=== PATIENT | male | born 1980 | race Caucasian/White ===

== ENCOUNTER 2024-08-09 11:36 | Emergency (ER) | payer OTHER, SELFPAY ==
--- NOTE | ~2024-08-09 | CT_ITS ---
EXAMINATION: CT abdomen pelvis wo con DATE: 08/09/2024 12:48 INDICATION: Flank pain. TECHNIQUE: Computed tomography (CT) of the abdomen and pelvis was performed without intravenous contr ast. The dose-length product was 206.24 mGy-cm. Automated exposure control and iterative reconstructi on technique were employed. COMPARISON: CT dated 10/26/2009. FINDINGS: Heart size normal. No significant pleural or pericardial effusion. There are cholecystectom y clips. The spleen, pancreas, adrenal glands are unremarkable. Status post cholecystectomy. There is a 2 mm nonobstructing left renal stone. No ureteral stone or hydronephrosis. Nonobstructive bowel ga s pattern. No significant vascular abnormality. No lymphadenopathy. No acute osseous abnormality. No focal lytic or blastic lesions. No free air or free fluid. IMPRESSION: 1. Nonobstructing left nephrolithiasis. Reviewed, dictated and finalized at location A.
--- OUTSIDE RECORDS SUMMARY | 2024-08-09 11:39 | XMS_ITS | Referral Summary ---
Author Organization [facility] Address [address] [place] [address] Care Team Providers Care Wire Drawer Name Role Phone Cecilio Solis MD Primary Care Provider + Encounters Date Type Department Care Team Description 08/03/2024 Results Follow-Up [facility] Con[facility]ient Care at [address] [phone] Estefanía Langley NP 08/02/2024 9:24 AM CDT - 08/02/2024 11:59 PM CDT Hospital Encounter [address] [address] Urinary urgency Discharge Disposition: Discharge to home or self care 08/02/2024 9:15 AM CDT Office Visit [facility] at [address] [phone] Clay Fam NP Urinary urgency (Primary Dx); Elevated blood pressure reading in office without diagnosis of hypertension 07/27/2024 Results Follow-Up [facility] Group Convenient Care at [address] [phone] Estefanía Langley NP 07/25/2024 11:59 PM CDT Hospital Encounter [address] [address] Cystitis with hematuria Discharge Disposition: Discharge to home or self care 07/25/2024 4:30 PM CDT Office Visit [facility] at [address] [phone] Kusum Ackerman PA Cystitis with hematuria (Primary Dx) from Last 3 Months Allergies No known active allergies Medications cephalexin (KEFLEX) 500 mg capsule 5 Active azithromycin (ZITHROMAX) 250 mg tablet Take 2 tablets by mouth on day one then 1 daily for four days. 2 Active sulfamethoxazol e-trimethoprim (Bactrim DS) 800-160 mg per tabletIndicatio ns:Urinary urgency Take 1 tablet by mouth 2 (two) times a day for 7 days 14 tablet 5 08/10/19 25 Active sulfamethoxazol e-trimethoprim (BACTRIM DS) 800-160 mg per tablet Take 1 tablet by mouth 2 (two) times a day for 7 days 14 tablet 5 08/03/19 25 Discontinu ed(Therapy completed) Active Problems No known active problems Social History Tobacco Use Types Packs/Day Years Used Date Smoking Tobacco: Never Assessed Sex and Gender Information Value Date Recorded Sex Assigned at Not on file Legal Sex Male 10:19 AM CDT Gender Identity Not on file Sexual Orientation Not on file Last Filed Vital Signs Vital Sign Reading Time Taken Comments Blood Pressure 157/97 08/02/2024 8:58 AM CDT Pulse 88 08/02/2024 8:58 AM CDT Temperature 36.8 C (98.2 F) 08/02/2024 8:58 AM CDT Respiratory Rate 20 08/02/2024 8:58 AM CDT Oxygen Saturation 99% 08/02/2024 8:58 AM CDT Inhaled Oxygen Concentration - - Weight 86.2 kg (190 lb) 08/02/2024 8:58 AM CDT Height - - Body Mass Index - - Plan of Treatment Not on file Procedures Procedure Name Priority Date/Time Associated Diagnosis Comments POCT URINALYSIS DIPSTICK Routine 08/02/2024 9:24 AM CDT Urinary urgency URINE CULTURE Routine 08/02/2024 9:24 AM CDT Urinary urgency URINE CULTURE Routine 07/25/2024 7:33 PM CDT Cystitis with hematuria POCT URINALYSIS DIPSTICK Routine 07/25/2024 4:42 PM CDT Cystitis with hematuria from Last 3 Months Results * (ABNORMAL) POCT urinalysis dipstick (08/02/2024 9:24 AM CDT) Color, Urine, POC Yellow Clarity, ur, POC Clear Clear Glucose, ur, POC Negative Negative Bilirubin, ur, POC Negative Negative Ketones, ur, POC Negative Negative Specific [place], POC 1.010 1.003 - 1.030 Blood, ur, POC Small(A) Negative pH, ur, POC 5.5 5.0 - 8.0 Protein, ur, POC Negative Negative Urobilinogen, urine, POC 0.2 0.2 - 1.0 mg/dL Nitrite, ur, POC Negative Negative Leukocytes, ur, POC Trace(A) Negative Lot Number [id number] Urine 08/02/2024 9:24 AM CDT Clay Fam NP POINT OF CARE TEST ORDERABLES F inal Result * Urine culture Urine, clean voided (08/02/2024 9:24 AM CDT) Report Final Report: No growth Comment:Testing performed by : [facility], [address] [place] [address]., [address] Urine, clean voided 08/02/2024 9:24 AM CDT 08/02/2024 5:39 PM CDT Narrative GEORGI Mir 08/03/2024 6:28 PM CDT Testing performed by [facility] Microbiology Laboratory ([phone]) Clay Fam NP LAB MICROBIOLOGY - GENERAL [facility] Final Result GEORGI [address] [address] Department [place] [address] * Urine culture Urine, clean voided (07/25/2024 7:33 PM CDT) Report Final Report: Less than 100,000 colonies/mL (clinically insignificant growth based on current clinical standards) Comment:Testing performed by : [facility], [address] [place]., [address] Organism (CLINICALLY INSIGNIFICANT GROWTH GEORGI Urine, clean voided 07/25/2024 7:33 PM CDT 07/26/2024 5:23 AM CDT Narrative GEORGI ELIZABETH - 07/27/2024 7:21 AM CDT Testing performed by [facility] Microbiology Laboratory ([phone]) Kusum DICKSON LAB MICROBIOLOGY - [place] ORDERABLES Final Result GEORGI [address] [address] Department of Laboratories [place], [place] [id number] * (ABNORMAL) POCT urinalysis dipstick (07/25/2024 4:42 PM CDT) Color, Urine, POC Yellow Clarity, ur, POC Clear Clear Glucose, ur, POC Negative Negative MG/DL Bilirubin, ur, POC Negative Negative, Small, Moderate, Large Ketones, ur, POC Negative Negative Specific [place], POC 1.005 1.003 - 1.030 Blood, ur, POC Hemolyzed, trace(A) Negative pH, ur, POC 5.5 5.0 - 8.0 Protein, ur, POC Negative Negative Urobilinogen, urine, POC 0.2 0.2 - 1.0 mg/dL Nitrite, ur, POC Negative Negative Leukocytes, ur, POC Small(A) Negative Lot Number 0 Urine 07/25/2024 4:42 PM CDT Kusum DICKSON POINT OF CARE TEST ORDER SAM Final Result from Last 3 Months Insurance [employer] [facility] HMO [facility] HMO Care Teams Wire Drawer Relationship Specialty Start Date End Date Cecilio Solis MD PCP - General 07/15/18
--- OUTSIDE RECORDS SUMMARY | 2024-08-09 11:39 | XMS_ITS | Clinical Summary ---
Author Organization [facility] Address [address] [place] [address] Care Team Providers Care Surgical Clinical Reviewer Name Role Phone Cecilio Solis MD Primary Care Provider + Allergies No known active allergies Medications cephalexin [...] completed) Active Problems No known active problems Encounters Date Type Department Care Team Description 08/03/2024 Results Follow-Up [facility] Convenient Care at [address] [phone] Estefanía Langley NP 08/02/2024 9:24 AM CDT - 08/02/2024 11:59 PM CDT Hospital Encounter [address] [address] Urinary urgency Discharge Disposition: Discharge to home or self care 08/02/2024 9:15 AM CDT Office Visit [facility] at [address] [phone] Clay Fam NP Urinary urgency (Primary Dx); Elevated blood pressure reading in office without diagnosis of hypertension 07/27/2024 Results Follow-Up [facility] Con[facility]ient [facility] at [address] [phone] Estefanía Langley NP 07/25/2024 11:59 PM CDT Hospital Encounter [address] [address] Cystitis with hematuria Discharge Disposition: Discharge to home or self care 07/25/2024 4:30 PM CDT Office Visit [facility] Convenient Care at [address] [phone] Kusum Ackerman PA Cystitis with hematuria (Primary Dx) from Last 3 Months Social History Tobacco Use Types Packs/Day Years Used Date Smoking Tobacco: Never Assessed Sex and Gender Information Value Date Recorded Sex Assigned at Not on file Legal Sex Male 10:19 AM CDT Gender Identity Not on file Sexual Orientation Not on file Obstetrics History Last Filed Vital Signs Vital Sign Reading [...] Mass Index - - Plan of Treatment Health Maintenance Due Date Last Done Comments Depression Screening 1982 Hepatitis C Screening 1982 DTaP/Tdap/Td Vaccine (1 - Tdap) 1993 Varicella Vaccines (1 of 2 - 13+ 2-dose series) 07/06/1995 Hepatitis B Screening 2000 Regular Well Visit/Exam 18-64 2000 Covid-19 Vaccine Completed 01/03/2024, , 05/23/2020, Additional history exists Influenza Vaccine Completed 01/03/2024, , 01/06/2019 HPV Vaccines Aged Out No longer eligi ble based on patient's age to complete this topic Pneumococcal vaccine <65 Aged Out No longer eligible based on patient's age to complete this topic Procedures Procedure Name Priority Date/Time Associated Diagnosis [...] Negative Ketones, ur, POC Negative Negative Specific [place], POC 1.010 1.003 - 1.030 Blood, ur, POC Small(A) Negative pH, ur, POC 5.5 5.0 - 8.0 Protein, ur, POC Negative Negative Urobilinogen, urine, POC 0.2 0.2 - 1.0 mg/dL Nitrite, ur, POC Negative Negative Leukocytes, ur, POC Trace(A) Negative Lot Number [id number] Urine 08/02/2024 9:24 AM CDT Clay Fam NP POINT OF CARE TEST ORDERABLES F inal Result * Urine culture Urine, clean voided (08/02/2024 9:24 AM CDT) Report Final Report: No growth Comment:Testing performed by : [facility], [address] [place]., [address] Urine, clean voided 08/02/2024 9:24 AM CDT 08/02/2024 5:39 PM CDT Narrative CERNER - 08/03/2024 6:28 PM CDT Testing performed by [facility] Microbiology Laboratory ([phone]) us Clay Fam NP LAB MICROBIOLOGY - GENERAL [facility] Final Result Performing Organization Address [facility]/ZIP Co de Phone Number [facility] [address] [address] Department [place] [address] * Urine culture Urine, clean voided (07/25/2024 7:33 PM CDT) Report Final Report: Less than 100,000 colonies/mL (clinically insignificant growth based on current clinical standards) Comment:Testing performed by : [facility], [address] [place]., [address] Organism (CLINICALLY INSIGNIFICANT GROWTH [facility] Urine, clean voided 07/25/2024 7:33 PM CDT 07/26/2024 5:23 AM CDT Narrative GEORGI - 07/27/2024 7:21 AM CDT Testing performed by [facility] Microbiology Laboratory ([phone]) us Kusum DICKSON LAB MICROBIOLOGY - [facility] AL ORDERABLES Final Result Performing Organization Address [facility] Co de Phone Number [facility] [address] [address] Department [place] [address] * (ABNORMAL) POCT urinalysis dipstick (07/25/2024 4:42 PM CDT) Color, Urine, POC Yellow Clarity, ur, POC Clear Clear Glucose, ur, POC Negative Negative MG/DL Bilirubin, ur, POC Negative Negative, Small, Moderate, Large Ketones, ur, POC Negative Negative Specific [place], POC 1.005 1.003 - 1.030 Blood, ur, [...] Final Result from Last 3 Months [facility] Care Teams Surgical Clinical Reviewer Relationship Specialty Start Date End Date Cecilio Solis MD PCP - General 07/15/18
--- OUTSIDE RECORDS SUMMARY | 2024-08-09 11:39 | XMS_ITS | Clinical Summary ---
Author Organization [facility] Address [facility] [place] [address] Care Team Providers Care Press Department Manager Name Role Phone Cecilio Solis MD Primary Care Provider [phone] Allergies No known active allergies Medications multi vitamin/mineral s tablet Take 1 tablet by mouth daily. Active ciprofloxacin (CIPRO) 500 MG tabletIndicatio ns:Chronic prostatitis Take 1 tablet (500 mg total) by mouth 2 (two) times daily for 30 days. 60 tablet 5 025 Active minoxidil (LONITEN) 2.5 MG tablet Take 1 tablet (2.5 mg total) by mouth daily. Active azithromycin 250 MG tabletIndicatio ns:Sore throat Take 2 tablets by mouth on day one then 1 daily for four days. 6 tablet 2 025 Discontinued sulfamethoxazol e-trimethoprim (BACTRIM) 400-80 MG tablet Take 1 tablet by mouth 2 (two) times daily. 025 Discontinued Active Problems No known active problems Resolved Problems Problem Noted Date Diagnosed Date Resolved Date Encounter for [facility] examination in adult 06/26/2018 12/11/2019 Encounters Date Type Department Care Team Description 08/03/2024 12:26 PM CDT - 08/03/2024 11:59 PM CDT Hospital Encounter [facility] Laboratory [address] [place] [address] Harrison Nielson PA Discharge Disposition: Home or Self Care (Routine Discharge) 08/03/2024 9:20 AM CDT Laboratory Only [facility] Family & Internal Medicine [address] [phone] Harrison Nielson PA 08/03/2024 8:40 AM CDT Office Visit [facility] Family & Internal [address] [phone] Harrison Nielson PA UTI (S/s x 2 weeks. Been to urgent care 3x rx abx) 08/03/2024 Orders Only [facility] Family Internal [address] [phone] Harrison Nielson PA 08/03/2024 Results Follow-Up [facility] Internal [address] [phone] Harrison Nielson PA PROSTATE SPECIFIC ANTIGEN,SCREENING 08/03/2024 Travel from Last 3 Months Immunizations Immunization Administration Dates Next Due Hepatitis A (Generic) 11/28/2009 Influenza Adult (Generic) 01/06/2019 MMR 01/17/2010,11/28/2009 MODERNA COVID-19 (12+) MRNA, LNP-S, PF, 100 MCG/ 0.5 ML DOSE 05/23/2020,04/25/2020 Meningococcal 11/28/2009 Polio IPV (Ipol) 11/28/2009 Family History Medical History Relation Comments Cancer Father skin Hodgkin's lymphoma Mother Hypertension Mother Relation Status Comments Father Alive Mother Alive Social History Tobacco Use Types Packs/Day Years Used Date Smoking Tobacco: Never Smokeless Tobacco: Never Tobacco Cessation:Counseling Given: No Alcohol Use Standard Drinks/Week Comments Yes 0 (1 standard drink = 0.6 oz pur e alcohol) AUDIT-C Answer Date Recorded Frequency of Alcohol Consumption 4 or more times a week 06/26/2018 Average Number of Drinks Not on file 019 Frequency of Binge Drinking Not on file 05/31 PHQ-2 Answer Date Recorded Patient Health Questionnaire-2 Score 0 08/03/2024 Education Answer Date Recorded What is the highest level of school you have completed or the highest degree you have received? Master's degree (e.g., MA, MS, Carlo, MEd, WIRE STRAIGHTENER, NOAM) 06/26/2018 Sex and Gender Information Value Date Recorded Sex Assigned at Male 06/26/2018 8:13 AM CDT Legal Sex Male 11:58 AM CDT Gender Identity Male 06/26/2018 8:13 AM CDT Sexual Orientation Straight 06/26/2018 8: 13 AM CDT Last Filed Vital Signs Vital Sign Reading Time Taken Comments Blood Pressure 142/86 08/03/2024 8:55 AM CDT Pulse 73 08/03/2024 8:44 AM CDT Temperature 36.6 C (97.8 F) 08/03/2024 8:44 AM CDT Respiratory Rate 16 08/03/2024 8:44 AM CDT Oxygen Saturation 98% 08/03/2024 8:44 AM CDT Inhaled Oxygen Concentration - - Weight 86.6 kg (191 lb) 08/03/2024 8:44 AM CDT Height 177.8 cm (5' 10 ) 08/03/2024 8:44 AM CDT Body Mass Index 27.41 08/03/2024 8:44 AM CDT Plan of Treatment Health Maintenance Due Date Last Done Comments Annual Physical 1985 Hepatitis C 2000 DTaP, Tdap and Td Vaccines ( 1 - Tdap) 2001 Hepatitis B Vaccines (1 of 3 - 19+ 3-dose series) 2001 COVID-19 Vaccine ( - 2023-2 5 season) 2023 05/23/2020, 04/25/2020 Meningococcal Vaccine Aged Out 11/28/2009 No betty lulú eligible based on patient's age to complete this topic PHQ-2 (Physician Harvey) Completed 08/03/2024 HPV Vaccines Aged Out No longer eligi ble based on patient's age to complete this topic Meningococcal B Vaccine Aged Out No l onger eligible based on patient's age to complete this topic Pneumococcal Vaccine: Pediatrics (0 to 5 Years) and At-Risk Patients (6 to 49 Years) Aged Out No longer eligible b ased on patient's age to complete this topic RSV Immunizations Under 20 Months Aged Out No longer eligible b ased on patient's age to complete this topic Procedures Procedure Name Priority Date/Time Associated Diagnosis Comments COLLECTION VENOUS BLOOD VENIPUNCTURE Routine 08/03/2024 9:36 AM CDT Chronic prostatitis PROSTATE SPECIFIC ANTIGEN,SCREENING Routine 08/03/2024 9:36 AM CDT Chronic prostatitis URINALYSIS AUTO DIP Routine 08/03/2024 Urgency of urination Burning with urination from Last 3 Months Results * (ABNORMAL) PROSTATE SPECIFIC ANTIGEN,SCREENING (08/03/2024 9:36 AM CDT) PSA 9.50(H) <4.00 NG/ML 08/03/2024 1:14 PM CDT [facility] Comment: Test was performed using the Siemens method. Results obtained with other assay methods or kits cannot be used interchangeably with results obtained by the Siemens method. 08/03/2024 9:36 AM CDT Harrison [facility] Final Result [facility] [address] [place] [address], [place] [phone] * URINALYSIS AUTO DIP (08/03/2024) COLOR (U) YELLOW YELLOW [id number], [facility] CLEAR CLEAR MG-[address], [facility] GLUCOSE (U) NEGATIVE NEGATIVE MG/DL [id number], [facility] BILIRUBIN (U) NEGATIVE NEGATIVE MG-[address], [facility] KETONES MG/DL (U) NEGATIVE NEGATIVE MG/DL [id number], [facility] SPECIFIC GRAVITY (U) 1.015 1.001 - 1.035 MG-[id number], [facility] BLOOD (U) NEGATIVE NEGATIVE MG-[id number], [facility] U PH 5.5 5.0 - 9.0 MG-[id number], [facility] PROTEIN (U) NEGATIVE NEGATIVE mg/dL [id number], [facility] UROBILINOGEN 0.2 0.2 - 1.0 EU/dL = mg/dL [id number] [facility] NITRITES NEGATIVE NEGATIVE MG/DL [id number] [facility] LEUKOCYTES (U) NEGATIVE NEGATIVE MG-12 860 [address] [facility] URINE SPECIMEN OBTAINED BY CLEAN CATCH PROCEDURE / Unknown 08/03/2024 us Harrison DICKSON URINE ORDERABLES Final Result -[id number] [address] [facility] [address] [place] [address], from Last 3 Months Insurance [employer] Care Teams Press Department Manager Relationship Specialty [place] [address] [place] [address] PCP - General FAMILY PRACTICE 06/23/18
--- OUTSIDE RECORDS SUMMARY | 2024-08-09 11:39 | XMS_ITS | Encounter Summary ---
Author Organization [facility] Healthcare Address [address] [place] [address] Care Team Providers Care Field Education Coordinator Name Role Phone Cecilio Solis MD Primary Care Provider + Encounter Details Date Type Department Care Team (Late st Contact Info) Description 08/03/2024 Results Follow-Up [facility] Medical Group Convenient Care at [address] [phone] Estefanía Langley, STRUCTURAL IRON WORKER [address] [place] [address] [address] [place] [address] Social History Tobacco Use Types Packs/Day Years Used Date Smoking Tobacco: Never Assessed Sex and Gender Information Value Date Recorded Sex Assigned at Not on file Legal Sex Male 10:19 AM CDT Gender Identity Not on file Sexual Orientation Not on file documented as of this encounter Miscellaneous Notes * Result Encounter Note - Deanne Bee MA - 08/07/2024 5:19 PM CDT Patient aware. * Result Encounter Note - Bruna Hudson LPN - 08/05/2024 5:41 PM CDT LVM for pt to return call to clinic to notify them of labs results. * Result Encounter Note - Bruna Hudson LPN - 08/04/2024 12:47 PM CDT LVM for pt to return call to clinic to notify them of labs results. documented in this encounter Plan of Treatment Not on file documented as of this encounter Visit Diagnoses Not on filedocumented in this encounter Care Teams Field Education Coordinator Relationship Specialty Start Date End Date Cecilio Solis MD PCP - General 07/15/18 documented as of this encounter
--- OUTSIDE RECORDS SUMMARY | 2024-08-09 11:39 | XMS_ITS | Encounter Summary ---
Author Organization [facility] Address [facility] [place] [address] Care Team Providers Care Head Of Transport Logistics Name Role Phone Cecilio Solis MD Primary Care Provider [phone] Encounter Details Date Type Department Care Team (Late st Contact Info) Description 08/03/2024 Results Follow-Up [facility] Medical Group Family & Internal Medicine [facility] [address] [place] [phone] [place] [address] [address] [place], [place] [id number] PROSTATE SPECIFIC ANTIGEN,SCREENING Social History Tobacco Use Types Packs/Day Years Used Date Smoking Tobacco: Never Smokeless Tobacco: Never Alcohol Use Standard Drinks/Week Comments Yes 0 [...] Master's degree (e.g., MA, MS, Carlo, MEd, ENERGY RISK MANAGEMENT ANALYST, NOAM) 06/26/2018 Sex and Gender Information Value Date Recorded Sex Assigned at Male 06/26/2018 8:13 AM CDT Legal Sex Male 11:58 AM CDT Gender Identity Male 06/26/2018 8:13 AM CDT Sexual Orientation Straight 06/26/2018 8: 13 AM CDT documented as of this encounter Functional Status * Over the past 2 weeks, how often have you been bothered by any of the following problems? Question Answer Date of Assessment Author Status Little interest or pleasure in doing things Not at all 08/03/2024 8:54 AM CDT Keily Avery MA Active Feeling down, depressed, or hopeless Not at all 08/03/2024 8:54 AM CDT Keily Avery MA Activ e Patient Health Questionnaire-2 Score 0 08/03/2024 8:54 AM CDT Keily Avery MA Active * If you checked off any problems on this questionnaire so far, Question Answer Date of Assessment Author Status How difficult have these problems made it for you to do your work, take care of things at home, or get along with other people? Not difficult at all 08/03/2024 8:54 AM CDT Keily Avery MA Active documented as of this encounter Plan of Treatment Not on file documented as of this encounter Visit Diagnoses Not on filedocumented in this encounter Care Teams Head Of Transport Logistics Relationship Specialty [place] [address] [place] [address] PCP - General FAMILY PRACTICE 06/23/18 documented as of this encounter
--- OUTSIDE RECORDS SUMMARY | 2024-08-09 11:39 | XMS_ITS | Encounter Summary ---
Author Organization [facility] Healthcare Address [address] [place] [address] Care Team Providers Care Cone Sewer Name Role Phone Cecilio Solis MD Primary Care Provider + Encounter Details Date Type Department Care Team (Late st Contact Info) Description 07/27/2024 Results Follow-Up [facility] Medical Group Convenient Care at [address] [phone] Estefanía Langley NP [address] [place] [address] [address] [place] [address] Social History Tobacco Use Types Packs/Day Years Used Date Smoking Tobacco: Never Assessed Sex and Gender Information Value Date Recorded Sex Assigned at Not on file Legal Sex Male 10:19 AM CDT Gender Identity Not on file Sexual Orientation Not on file documented as of this encounter Miscellaneous Notes * Result Encounter Note - Gayatri Moraes LPN - 07/27/2024 4:46 PM CDT Patient returned call and notified of test results. Patient verbalized understanding. * Result Encounter Note - Gayatri Moraes LPN - 07/27/2024 4:21 PM CDT LMTRC documented in this encounter Plan of Treatment Not on file documented as of this encounter Visit Diagnoses Not on filedocumented in this encounter Care Teams Cone Sewer Relationship Specialty Start Date End Date Cecilio Solis MD PCP - General 07/15/18 documented as of this encounter
--- OUTSIDE RECORDS SUMMARY | 2024-08-09 11:39 | XMS_ITS | Encounter Summary ---
Author Organization [facility] Address [facility] [place] [address] Care Team Providers Care Coil Winder Strap Name Role Phone Cecilio Solis MD Primary Care Provider [phone] Encounter Details Date Type Department Care Team (Late st Contact Info) Description 07/03/2023 [employer] Message [address] [address] [facility] Schedule Appointment - Annual Physical Social History Tobacco Use Types Packs/Day Years [...] on file 05/31 PHQ-2 Answer Date Recorded PHQ-2 Score - If the patient scores above 3, please move on to questions 3-9 0 08/10/2021 Education Answer Date Recorded What is the highest level of school you have completed or the highest degree you have received? Master's degree (e.g., MA, MS, Carlo, MEd, COCOA POWDER MIXER OPERATOR, NOAM) 06/26/2018 Sex and Gender Information Value Date Recorded Sex Assigned at Male 06/26/2018 8:13 AM CDT Legal Sex Male 11:58 AM CDT Gender Identity Male 06/26/2018 8:13 AM CDT Sexual Orientation Straight 06/26/2018 8: 13 AM CDT documented as of this encounter Plan of Treatment Not on file documented as of this encounter Visit Diagnoses Not on filedocumented in this encounter Care Teams Coil Winder Strap Relationship Specialty [place] [address] [place] [address] PCP - General FAMILY PRACTICE 06/23/18 documented as of this encounter
[2024-08-09 11:43] VITALS: BP 146/90; PULSE 83; RESP 16; O2SAT 100
--- OUTSIDE RECORDS SUMMARY | 2024-08-09 12:00 | XMS_ITS | Encounter Summary ---
Author Organization [facility] Address [facility] [place] [address] Care Team Providers Care Incinerator Plant General Supervisor Name Role Phone Cecilio Solis MD Primary Care Provider [phone] Encounter Details Date Type Department Care Team (Late st Contact Info) Description 08/03/2024 Results Follow-Up [facility] Family & Internal Medicine [facility] [address] [place] [phone] [place] [address] [place], [place] [id number] PROSTATE SPECIFIC ANTIGEN,SCREENING Social History Tobacco Use [...] Master's degree (e.g., MA, MS, Carlo, MEd, MINERAL RESOURCES INSPECTOR, NOAM) 06/26/2018 Sex and Gender Information Value [...] on filedocumented in this encounter Care Teams Incinerator Plant General Supervisor Relationship Specialty [place] [address] [place] [address] PCP - General FAMILY PRACTICE 06/23/18 documented as of this encounter
--- OUTSIDE RECORDS SUMMARY | 2024-08-09 12:00 | XMS_ITS | Encounter Summary ---
Author Organization [facility] Healthcare Address [address] [place] [address] Care Team Providers Care Switchboard Operator Receptionist Name Role Phone Cecilio Solis MD Primary Care Provider + Encounter Details Date Type Department Care Team (Late st Contact Info) Description 07/27/2024 Results Follow-Up [facility] Convenient Care at [address] [phone] Estefanía Langley NP [address] [place] [address] [address] [place] [address] Social History Tobacco Use Types [...] on filedocumented in this encounter Care Teams Switchboard Operator Receptionist Relationship Specialty Start Date End Date Cecilio Solis MD PCP - General 07/15/18 documented as of this encounter
--- OUTSIDE RECORDS SUMMARY | 2024-08-09 12:00 | XMS_ITS | Clinical Summary ---
Author Organization [facility] Address [facility] [place] [address] Care Team Providers Care Pickup Driver Name Role Phone Cecilio Solis MD Primary Care Provider [phone] Allergies No known active allergies Medications multi [...] Diagnosed Date Resolved Date Encounter [facility] examination in adult 06/26/2018 12/11/2019 Encounters Date Type Department Care Team Description 08/03/2024 12:26 PM CDT - 08/03/2024 11:59 PM CDT Hospital Encounter [facility] Laboratory [address] [place] [address] Harrison Nielson PA Discharge Disposition: Home or Self Care (Routine Discharge) 08/03/2024 9:20 AM CDT Laboratory Only [facility] Family & Internal Medicine [address] [address] Harrison Nielosn PA 08/03/2024 8:40 AM CDT Office Visit [facility] Family & Internal [address] [phone] Harrison Nielson PA UTI (S/s x 2 weeks. Been to urgent care 3x rx abx) 08/03/2024 Orders Only [facility] Family Internal [address] [phone] Harrison Nielson PA 08/03/2024 Results Follow-Up [facility] Internal [address] [phone] Harrison Nielson PA PROSTATE SPECIFIC ANTIGEN,SCREENING 08/03/2024 [...] Master's degree (e.g., MA, MS, Carlo, MEd, CONCRETE TRUCK DRIVER, NOAM) 06/26/2018 Sex and Gender Information Value [...] age to complete this topic PHQ-2 (Physician Upatoi) Completed 08/03/2024 HPV Vaccines Aged Out No [...] 9.50(H) <4.00 NG/ML 08/03/2024 1:14 PM CDT [facility] Comment: Test was performed using the Siemens method. Results obtained with other assay methods or kits cannot be used interchangeably with results obtained by the Siemens method. 08/03/2024 9:36 AM CDT [facility] Final Result [facility] [address] [place] [address], [place] [phone] * URINALYSIS AUTO DIP (08/03/2024) COLOR (U) YELLOW YELLOW [id number], [facility] CLEAR CLEAR MG-[address], [facility] GLUCOSE (U) NEGATIVE NEGATIVE MG/DL MG-[address], [facility] BILIRUBIN (U) NEGATIVE NEGATIVE MG-[address], [facility] KETONES MG/DL (U) NEGATIVE NEGATIVE MG/DL MG-[id number], [facility] SPECIFIC GRAVITY (U) 1.015 1.001 - 1.035 MG-[address], [facility] BLOOD (U) NEGATIVE NEGATIVE MG-[address], [facility] U PH 5.5 5.0 - 9.0 MG-[address], [facility] PROTEIN (U) NEGATIVE NEGATIVE mg/dL MG-[address], [facility] UROBILINOGEN 0.2 0.2 - 1.0 EU/dL = mg/dL MG-45943 [facility] [facility] NITRITES NEGATIVE NEGATIVE MG/DL MG-63932 [facility] LEUKOCYTES (U) NEGATIVE NEGATIVE MG-12 [address] [facility] URINE SPECIMEN OBTAINED BY CLEAN CATCH PROCEDURE / Unknown 08/03/2024 us Harrison [facility] ORDERABLES Final Result -[id number] [address] [place] [address] [place] [address], from Last 3 Months Insurance [employer] Care Teams Pickup Driver Relationship Specialty [place] [address] [place] [address] PCP - General FAMILY PRACTICE 06/23/18
--- OUTSIDE RECORDS SUMMARY | 2024-08-09 12:00 | XMS_ITS | Clinical Summary ---
Author Organization [facility] Address [address] [place] [address] Care Team Providers Care Department Administrator Name Role Phone Cecilio Solis MD Primary [...] Department Care Team Description 08/03/2024 Results Follow-Up [facility] Convenient Care at [address] [phone] Estefanía Langley NP 08/02/2024 9:24 AM CDT - 08/02/2024 11:59 PM CDT Hospital Encounter [address] [address] Urinary urgency Discharge Disposition: Discharge to home or self care 08/02/2024 9:15 AM CDT Office Visit [facility]ient [facility] at [address] [phone] Clay Fam NP Urinary urgency (Primary Dx); Elevated blood pressure reading in office without diagnosis of hypertension 07/27/2024 Results Follow-Up [facility] Con[facility]ient Care at [address] [phone] Estefanía Langley NP 07/25/2024 11:59 PM CDT Hospital Encounter [address] [address] Cystitis with hematuria Discharge Disposition: Discharge to home or self care 07/25/2024 4:30 PM CDT Office Visit [facility] Con[facility]ient Care at [address] [phone] Kusum Ackerman PA Cystitis with hematuria (Primary [...] Negative Ketones, ur, POC Negative Negative Specific [place], POC 1.010 1.003 - 1.030 Blood, ur, POC Small(A) Negative pH, ur, POC 5.5 5.0 - 8.0 Protein, ur, POC Negative Negative Urobilinogen, urine, POC 0.2 0.2 - 1.0 mg/dL Nitrite, ur, POC Negative Negative Leukocytes, ur, POC Trace(A) Negative Lot Number [id number] Urine 08/02/2024 9:24 AM CDT Clay Fam NP POINT OF CARE TEST ORDERABLES F inal Result * Urine culture Urine, clean voided (08/02/2024 9:24 AM CDT) Report Final Report: No growth Comment:Testing performed by : [facility], [address] [place]., [address] Urine, clean voided 08/02/2024 9:24 AM CDT 08/02/2024 5:39 PM CDT Narrative CERNER - 08/03/2024 6:28 PM CDT Testing performed by [facility] Microbiology Laboratory ([phone]) us Clay Fam NP LAB MICROBIOLOGY - GENERAL ABIMAEL PIMENTEL Final Result Performing Organization Address [facility]/ZIP Co de Phone Number [facility] [address] [address] Department [place] [address] * Urine culture Urine, clean voided (07/25/2024 7:33 PM CDT) Report Final Report: Less than 100,000 colonies/mL (clinically insignificant growth based on current clinical standards) Comment:Testing performed by : [facility], [address] [place]., [address] Organism (CLINICALLY INSIGNIFICANT GROWTH [facility] Urine, clean voided 07/25/2024 7:33 PM CDT 07/26/2024 5:23 AM CDT Narrative GEORGI - 07/27/2024 7:21 AM CDT Testing performed by [facility] Microbiology Laboratory ([phone]) us Kusum DICKSON LAB MICROBIOLOGY - [facility] AL ORDERABLES Final Result Performing Organization Address [facility] Co de Phone Number [facility] [phone] Department [place] [address] * (ABNORMAL) POCT urinalysis dipstick (07/25/2024 4:42 PM CDT) Color, Urine, POC Yellow Clarity, ur, POC Clear Clear Glucose, ur, POC Negative Negative MG/DL Bilirubin, ur, POC Negative Negative, Small, Moderate, Large Ketones, ur, POC Negative Negative Specific [place], POC 1.005 1.003 - 1.030 Blood, ur, [...] Final Result from Last 3 Months Insurance [facility] Care Teams Department Administrator Relationship Specialty Start Date End Date Cecilio Solis MD PCP - General 07/15/18
--- OUTSIDE RECORDS SUMMARY | 2024-08-09 12:00 | XMS_ITS | Encounter Summary ---
Author Organization [facility] Healthcare Address [address] [place] [address] Care Team Providers Care Control Systems Designer Name Role Phone Cecilio Solis MD Primary Care Provider + Encounter Details Date Type Department Care Team (Late st Contact Info) Description 08/03/2024 Results Follow-Up [facility] Group Convenient Care at [address] [phone] Estefanía Langley, PURCHASING AND FISCAL CLERK [address] [place] [address] [address] [place] [address] Social History Tobacco Use Types [...] on filedocumented in this encounter Care Teams Control Systems Designer Relationship Specialty Start Date End Date Cecilio Solis MD PCP - General 07/15/18 documented as of this encounter
--- OUTSIDE RECORDS SUMMARY | 2024-08-09 12:00 | XMS_ITS | Encounter Summary ---
Author Organization [facility] Address [facility] [place] [address] Care Team Providers Care Mid Level Business Analyst Name Role Phone Cecilio Solis MD Primary Care Provider [phone] Encounter Details Date Type Department Care Team (Late st Contact Info) Description 07/03/2023 [employer] Message [address] [phone] [facility] Provider Schedule Appointment - Annual Physical Social [...] Master's degree (e.g., MA, MS, Carlo, MEd, MOLDING PRESS OPERATOR, NOAM) 06/26/2018 Sex and Gender Information [...] on filedocumented in this encounter Care Teams Mid Level Business Analyst Relationship Specialty [place] [address] [place] [address] PCP - General FAMILY PRACTICE 06/23/18 documented as of this encounter
--- OUTSIDE RECORDS SUMMARY | 2024-08-09 12:00 | XMS_ITS | Referral Summary ---
Author Organization [facility] Address [address] [place] [address] Care Team Providers Care Stopper Maker Name Role Phone Cecilio Solis MD Primary Care Provider + Encounters Date Type Department Care Team Description 08/03/2024 Results Follow-Up [facility] Convenient Care at [address] [phone] Estefanía Langley NP 08/02/2024 9:24 AM CDT - 08/02/2024 11:59 PM CDT Hospital Encounter [address] [address] Urinary urgency Discharge Disposition: Discharge to home or self care 08/02/2024 9:15 AM CDT Office Visit [facility] Convenient Care at [address] [phone] Clay Fam NP Urinary urgency (Primary Dx); Elevated blood pressure reading in office without diagnosis of hypertension 07/27/2024 Results Follow-Up [facility] Group Convenient Care at [address] [phone] Estefanía Langley NP 07/25/2024 11:59 PM CDT Hospital Encounter [address] [address] Cystitis with hematuria Discharge Disposition: Discharge to home or self care 07/25/2024 4:30 PM CDT Office Visit [facility] Convenient Care at [address] [phone] Kusum Ackerman PA Cystitis with hematuria (Primary [...] Negative Ketones, ur, POC Negative Negative Specific [place], POC 1.010 1.003 - 1.030 Blood, ur, POC Small(A) Negative pH, ur, POC 5.5 5.0 - 8.0 Protein, ur, POC Negative Negative Urobilinogen, urine, POC 0.2 0.2 - 1.0 mg/dL Nitrite, ur, POC Negative Negative Leukocytes, ur, POC Trace(A) Negative Lot Number [id number] Urine 08/02/2024 9:24 AM CDT Clay Fam NP POINT OF CARE TEST ORDERABLES F inal Result * Urine culture Urine, clean voided (08/02/2024 9:24 AM CDT) Report Final Report: No growth Comment:Testing performed by : [facility], [address] [place] [address]., [address] Urine, clean voided 08/02/2024 9:24 AM CDT 08/02/2024 5:39 PM CDT Narrative GEORGI Mir 08/03/2024 6:28 PM CDT Testing performed by [facility] Microbiology Laboratory ([phone]) Clay Fam NP LAB [facility]OLOGY - [facility] Final Result GEORGI [address] [address] Department [place] [address] * Urine culture Urine, clean voided (07/25/2024 7:33 PM CDT) Report Final Report: Less than 100,000 colonies/mL (clinically insignificant growth based on current clinical standards) Comment:Testing performed by : [facility], [address] [place]., [address] Organism (CLINICALLY INSIGNIFICANT GROWTH GEORGI Urine, clean voided 07/25/2024 7:33 PM CDT 07/26/2024 5:23 AM CDT Narrative GEORGI ELIZABETH - 07/27/2024 7:21 AM CDT Testing performed by [facility] Microbiology Laboratory ([phone]) Kusum DICKSON LAB MICROBIOLOGY - [facility] AL ORDERABLES Final Result GEORGI [address] [address] Department of Laboratories [place], [place] [id number] * (ABNORMAL) POCT urinalysis dipstick (07/25/2024 4:42 PM CDT) Color, Urine, POC Yellow Clarity, ur, POC Clear Clear Glucose, ur, POC Negative Negative MG/DL Bilirubin, ur, POC Negative Negative, Small, Moderate, Large Ketones, ur, POC Negative Negative Specific [place], POC 1.005 1.003 - 1.030 Blood, ur, [...] Result from Last 3 Months Insurance [employer] [facility] H[facility] HMO Care Teams Stopper Maker Relationship Specialty Start Date End Date Cecilio Solis MD PCP - General 07/15/18
[2024-08-09 12:09] LABS: Basophils Absolute Auto 0.1 K/mm3 (0.0-0.1); Basophils Percent Auto 1.1 % (0.2-1.2); Eosinophils Absolute Auto 0.1 K/mm3 (0-0.3); Eosinophils Percent Auto 1.1 % (0-4.4); Hematocrit 42.6 % (42.0-52.0); Hemoglobin 14.5 g/dL (14.0-18.0); Immature Granulocyte Absolute 0.02 K/mm3 (0.00-0.031); Immature Granulocyte Percent A 0.4 % (0-0.5); Lymphocytes Absolute Auto 2.84 K/mm3 (0.9-3.2); Lymphocytes Percent Auto 50.6 % (18.3-44.2); Mean Corpuscular Hemoglobin 31.3 pg (26-34); Mean Corpuscular Volume 91.8 fl (80-100); Mean Platelet Volume 10.2 fl (7.4-10.4); Monocytes Absolute Auto 0.5 K/mm3 (0.1-0.6); Neutrophils Absolute Auto 2.2 K/mm3 (1.3-6.7); Neutrophils Percent Auto 38.8 % (45.5-73.1); Platelet Count Result 186 k/mm3 (150-375); Red Blood Count 4.64 M/mm3 (4.6-6.20); Red Cell Distribution Width 11.6 % (11.5-14.5); White Blood Count 5.6 K/mm3 (4.5-10.0)
[2024-08-09 12:11] LABS: Add Urine Microscopic? NO; Appearance Urine Clear (Clear); Bilirubin Urine Negative (Negative); Blood Urine Negative (Negative); Color Urine Yellow (Yellow); Glucose Urine UA Negative (Negative); Ketones Urine Negative (Negative); Leukocyte Esterase Ur Negative LEU/UL (Negative); Nitrate Urine Negative (Negative); Protein Urine Negative (Negative); Specific Grav Ur 1.003 (1.001-1.035); Urobilinogen Urine 0.2 mg/dL (<2.0); pH Urine 6.5 (5.0-9.0)
[2024-08-09 12:19] LABS: INR 0.9; Prothrombin Time 12.7 Seconds (11.1-14.7)
[2024-08-09 12:20] LABS: Partial Thromboplastin Time 24.5 Seconds (22.3-36.8)
[2024-08-09 12:20] LABS: Alanine Aminotransferase 63 U/L (6-50); Albumin Level 4.4 g/dL (3.5-5.1); Alkaline Phosphatase 57 U/L (38-126); Anion Gap 9 mmol/L (4-12); Aspartate Amino Transferase 45 U/L (17-59); Blood Urea Nitrogen 14 mg/dL (9-20); Calcium 8.9 mg/dL (8.4-10.2); Carbon Dioxide 24 mmol/L (22-30); Chloride 103 mmol/L (98-107); Estimated CRCL calculation 100 ml/min; Estimated Glomerular Filt Rate > 60; Glucose 134 mg/dL (65-110); Potassium 3.9 mmol/L (3.4-5.0); Sodium 136 mmol/L (137-145)
--- NOTE | 2024-08-09 12:53 | ED.GENADULT ---
HPI - General Adult General Chief complaint: Urogenital-Male Stated complaint: Mid back pain-being treated for prostate infection Time Seen by Provider: 08/09/24 11:42 History of Present Illness HPI narrative: 44-year-old male present to the emergency department for evaluation for back pain. Approximately weeks ago patient was diagnosed with urinary tract infection his influenza cultures did come back positive for E coli. Patient was started on Keflex at that time. One week after stopping antibiotic patient's symptoms returned and he was treated with Bactrim for a week and symptoms return and he once again had follow-up with primary care physician and has now been on Cipro for the last few days. Patient will be on Cipro for the next 30 days. Patient states today he began having lower back pain but has no urinary symptoms. Patient does report a prior history of CT scans showing kidney stones but patient has passed a known kidney stone. Patient did have a PSA as outpatient that was elevated. Related Data Allergies Allergy/AdvReac Type Severity Reaction Status Date / Time No Known Allergies Allergy Unknown Verified 08/09/24 11:47 Review of Systems Review of Systems: All systems reviewed & are unremarkable except as noted in HPI and below Exam Narrative: APPEARANCE: Well appearing, no pain, no distress, well-nourished. HEAD: normocephalic, atraumatic. EYES: PERRLA/EOMI, conjunctivae clear. NOSE: Normal no drainage EARS:TMS clear with good light reflex. THROAT: Pharynx clear, no exudate. NECK: Supple. No adenopathy, no masses. RESPIRATORY: Airway patent, respirations nonlabored. Clear to auscultation bilaterally, no rales, rhonchi, wheezing. CARDIOVASCULAR: Regular rate and rhythm without murmurs rubs or gallops. ABDOMINAL: Soft, nontender, nondistended, normal bowel sounds MUSCULOSKELETAL: Moves all extremities. Strength/ROM intact, No edema, No calf tenderness. NEURO: Alert. Cranial nerves II through XII intact. Good gait. Good coordination SKIN: Warm, dry. Normal Color Course Vital Signs Vital signs: Vital Signs Pulse Rate 83 08/09/24 11:43 Respiratory Rate 16 08/09/24 11:43 Blood Pressure 146/90 H 08/09/24 11:43 Pulse Oximetry 100 08/09/24 11:43 Oxygen Delivery Room Air 08/09/24 11:43 Pulse Rate 80 08/09/24 14:11 Respiratory Rate 14 08/09/24 14:11 Blood Pressure 130/76 08/09/24 14:11 Pulse Oximetry 98 08/09/24 14:11 Oxygen Delivery Room Air 08/09/24 11:43 Medical Decision Making MDM Narrative Medical decision making narrative: 44-year-old male presents emergency department for evaluation for back pain. Patient is currently on antibiotics for a suspected urinary tract infection. Patient is currently afebrile with no leukocytosis hemoglobin of 14.5. INR is 0.9, UA is negative for infection with negative for hematuria. CT scan does show 2 mm nonobstructing left renal stone. Patient was updated results of the workup and he was comfortable the plan for discharge and close follow-up. Suspect muscular injury is the underlying etiology for his back pain. Patient's pain is worsened with movement and patient stated he did have something her this morning that caused some back pain. All questions concerns were addressed and patient was comfortable the plan for discharge and close follow-up Differential Diagnosis Differential Diagnosis: UTI, pancreatitis, kidney stone, prostatitis, musculoskeletal injury Vital Signs Vital Signs: Vital Signs Pulse Rate 83 08/09/24 11:43 Respiratory Rate 16 08/09/24 11:43 Blood Pressure 146/90 H 08/09/24 11:43 Pulse Oximetry 100 08/09/24 11:43 Oxygen Delivery Room Air 08/09/24 11:43 Pulse Rate 80 08/09/24 14:11 Respiratory Rate 14 08/09/24 14:11 Blood Pressure 130/76 08/09/24 14:11 Pulse Oximetry 98 08/09/24 14:11 Oxygen Delivery Room Air 08/09/24 11:43 Lab Data Lab results reviewed: Yes I reviewed the patient's lab results. 08/09/24 12:02 08/09/24 12:02 Labs: Lab Results 08/09/24 08/09/24 Range/Units 12:02 12:03 WBC 5.6 (4.5-10.0) K/mm3 RBC 4.64 (4.6-6.20) M/mm3 Hgb 14.5 (14.0-18.0) g/dL Hct 42.6 (42.0-52.0) % MCV 91.8 (80-100) fl MCH 31.3 (26-34) pg MCHC 34.0 (32-36) g/dl RDW 11.6 (11.5-14.5) % Plt Count 186 (150-375) k/mm3 MPV 10.2 (7.4-10.4) fl Immature Gran % (Auto) 0.4 (0-0.5) % Neut % (Auto) 38.8 L (45.5-73.1) % Lymph % (Auto) 50.6 H (18.3-44.2) % [place] % (Auto) 8.0 (2.6-8.5) % Eos % (Auto) 1.1 (0-4.4) % Baso % (Auto) 1.1 (0.2-1.2) % Lymph # (Auto) 2.84 (0.9-3.2) K/mm3 [place] # (Auto) 0.5 (0.1-0.6) K/mm3 Eos # (Auto) 0.1 (0-0.3) K/mm3 Baso # (Auto) 0.1 (0.0-0.1) K/mm3 Abs Immat Gran (auto) 0.02 (0.00-0.031) K/mm3 Absolute Neuts (auto) 2.2 (1.3-6.7) K/mm3 Absolute Nucleated RBC 0.000 (0.0-0.012) K/mm3 Nucleated RBC % 0.0 (0.0-0.2) % PT 12.7 (11.1-14.7) Seconds INR 0.9 APTT 24.5 (22.3-36.8) Seconds Sodium 136 L (137-145) mmol/L Potassium 3.9 (3.4-5.0) mmol/L Chloride 103 (98-107) mmol/L Carbon Dioxide 24 (22-30) mmol/L Anion Gap 9 (4-12) mmol/L BUN 14 (9-20) mg/dL Creatinine 0.87 (0.7-1.3) mg/dL Estim Creat Clear Calc 100 ml/min Estimated GFR > 60 (59 - ) Glucose 134 H (65-110) mg/dL Calcium 8.9 (8.4-10.2) mg/dL Total Bilirubin 1.0 (0.2-1.3) mg/dL AST 45 (17-59) U/L ALT 63 H (6-50) U/L Alkaline Phosphatase 57 (38-126) U/L Total Protein 7.0 (6.3-8.2) g/dL Albumin 4.4 (3.5-5.1) g/dL Urine Color Yellow (Yellow) Urine Appearance Clear (Clear) Urine pH 6.5 (5.0-9.0) Ur Specific [place] 1.003 (1.001-1.035) Urine Protein Negative (Negative) mg/dL Urine Glucose (UA) Negative (Negative) mg/dL Urine Ketones Negative (Negative) mg/dL Ur Blood (Man) Negative (Negative) Urine Nitrate Negative (Negative) Urine Bilirubin Negative (Negative) Urine Urobilinogen 0.2 (<2.0) mg/dL Leukocyte Esterase Rfl Negative (Negative) MARA/UL Imaging Data Radiologist's impression: Impressions Abdomen/Pelvis CT 08/09/24 13:01 IMPRESSION: 1. Nonobstructing left nephrolithiasis. Discharge Plan Discharge Clinical Impression: Back pain Patient Disposition: Home Condition: Stable Instructions: Antibiotic Form Additional Instructions: Antibiotic as directed until completed. Tylenol and ibuprofen for pain control. Flexeril for muscle spasm. If you have any worsening symptoms and please call or return to the emergency department. Patient Language: Omani Prescriptions: New cyclobenzaprine 10 mg tablet 10 mg PO BID PRN (Reason: muscle spasm) Qty: 14 0RF Follow-up/Referrals: PHYSICIAN NOT ON STAFF,NONSTAFF [Primary Care Provider] -
[2024-08-09 14:11] VITALS: BP 130/76; PULSE 80; RESP 14; O2SAT 98
== END 2024-08-09 14:12 | disposition home or self-care (01) ==
PROVIDERS: Emergency Provider Emergency Medicine
DX: M54.50 Low back pain, unspecified (principal); N20.0 Calculus of kidney; Z79.899 Other long term (current) drug therapy
CPT/HCPCS: 36415; 74176; 80053; 81003; 85025; 85610; 85730; 99283